=== PATIENT | female | born 1960 | race African-American/Black ===

== ENCOUNTER 2017-01-06 13:41 | Emergency (ER) | payer SELFPAY ==
[2017-01-06 15:16] LABS: APPEARANCE CLEAR (CLEAR); BILIRUBIN NEGATIVE (NEGATIVE); COLOR YELLOW (YELLOW); GLUCOSE NEGATIVE (NEGATIVE); KETONE NEGATIVE (NEGATIVE); LEUKOCYTE ESTERASE 1+ (NEGATIVE); NITRITE NEGATIVE (NEGATIVE); PROTEIN NEGATIVE (NEGATIVE); SPECIFIC GRAVITY 1.015 (1.005-1.020); UROBILINOGEN NORMAL (NORMAL)
[2017-01-06 15:18] LABS: BACTERIA FEW /hpf (NONE SEEN); EPITHELIAL CELLS 0-5 /hpf (0-5); WHITE CELLS - URINE 0-5 /hpf (0-5)
== END 2017-01-06 16:01 | disposition home or self-care (01) ==
LOC: D.ER 13:41
PROVIDERS: Nurse Practitioner Acute Care
DX: M19.91 Primary osteoarthritis, unspecified site (principal); M19.90 Unspecified osteoarthritis, unspecified site; M54.10 Radiculopathy, site unspecified; M54.9 Dorsalgia, unspecified; M79.1 Myalgia; F17.200 Nicotine dependence, unspecified, uncomplicated

== ENCOUNTER 2017-10-25 08:10 | Emergency (ER) | payer OTHER ==
[2017-10-25 08:39] LABS: HEMATOCRIT 42.1 % (36.0-48.0); HEMOGLOBIN 14.4 g/dL (12-16); MCH 29.7 pg (26.0-34.0); MCHC 34.2 g/dL (31.0-37.0); MCV 86.8 fL (80.0-100.0); MEAN PLATELET VOLUME 9.9 fL (7.4-10.4); PLATELET COUNT 314 10x3/uL (130-400); RBC 4.85 10x6/uL (4.00-5.40); RDW 12.8 % (11.5-14.5); WBC 9.1 10x3/uL (4.8-10.8)
[2017-10-25 08:45] LABS: APTT 27.8 SECONDS (22.8-39.4); INR 1.02 (0.85-1.17)
[2017-10-25 08:56] LABS: ALBUMIN 3.5 g/dL (3.4-5.0); ALKALINE PHOSPHATASE 147 U/L (46-116); ALT (SGPT) 21 U/L (10-68); BILIRUBIN - TOTAL 0.65 mg/dL (0.2-1.3); CALC OSMOLALITY 280 mosm/kg (275-300); CALCIUM 9.2 mg/dL (8.5-10.1); CARBON DIOXIDE 25.6 mmol/L (21.0-32.0); CHLORIDE - SERUM 104 mmol/L (98-107); CREATINE KINASE 67 UL (21-215); CREATININE - SERUM 0.7 mg/dL (0.6-1.3); GLUCOSE 157 mg/dL (74-106); POTASSIUM - SERUM 3.3 mmol/L (3.5-5.1); SODIUM 140 mmol/L (136-145); UREA NITROGEN 11 mg/dL (7-18); eGFR NON AFRICAN AMERICAN > 90 mL/min (90-120)
[2017-10-25 08:57] LABS: TROPONIN-I < 0.017 ng/mL (0.000-0.060)
[2017-10-25 09:15] LABS: EOSINOPHILS 3 % (0-7); LYMPHOCYTES 55 % (15-50); MONOCYTES 8 % (2-11); NEUTROPHILS 33 % (40-80); PLATELET ESTIMATE NORMAL; ROULEAUX OCC
== END 2017-10-25 10:22 | disposition other institution (70) ==
LOC: D.ER 08:10
PROVIDERS: Family Medicine
DX: I63.9 Cerebral infarction, unspecified (principal); G81.94 Hemiplegia, unspecified affecting left nondominant side; I10 Essential (primary) hypertension; F17.200 Nicotine dependence, unspecified, uncomplicated; R00.0 Tachycardia, unspecified